=== PATIENT | female | born 1985 | race Hispanic/Latino ===

== ENCOUNTER 2023-11-17 12:34 | Inpatient (IN) | payer BC ==
[2023-11-17 13:39] LABS: #Monocytes 0.5 thou/uL (0.11-0.59); #Neutrophils 1.8 thou/uL (1.40-6.50); %Basophils 0.7 % (0.0-1.0); %Eosinophils 0.5 % (0.0-10.0); %Lymphocytes 46.3 % (21.0-51.0); Hemoglobin 5.8 g/dL (12.0-16.0); Mean Corpuscular HGB CONC 27.6 g/dL (32.0-36.0); Mean Platelet Volume 9.4 fL (7.4-10.4); Platelet Count 580 10x3/uL (130-400); RBC Distribution Width 25.9 % (11.5-14.5); Red Blood Cell (RBC) Count 3.23 mill/uL (4.20-5.40); White Blood Cell (WBC) Count 4.4 10x3/uL (4.8-10.8)
[2023-11-17 13:42] LABS: Critical Call w/ Read Back NUR.CJM1@1341
[2023-11-17 14:01] LABS: ALT (SGPT) 20 U/L (8-55); AST (SGOT) 20 U/L (5-34); Albumin 4.4 g/dL (3.5-5.0); Alkaline Phosphatase 69 U/L (40-110); Anion Gap 9 mmol/L (10-20); BUN (Urea Nitrogen) 8 mg/dL (7.0-18.7); Bilirubin, Total 0.5 mg/dL (0.2-1.2); Calc. Creatinine Clearance 0 mL/min (70-130); Calcium 8.9 mg/dL (7.8-10.44); Carbon Dioxide 23 mmol/L (22-29); Chloride 109 mmol/L (98-107); Estimated GFR 114; Globulin 3.2 g/dL (2.4-3.5); Glucose 89 mg/dL (70-105); Potassium 3.6 mmol/L (3.5-5.1); Protein, Total 7.6 g/dL (6.0-8.3); Sodium 137 mmol/L (136-145)
[2023-11-17 14:07] LABS: Anisocytosis MODERATE=16-30 cells HPF (0-5); CellaVision Operator ID LAB.MJL; Elliptocytes SLIGHT = 2-5 cells HPF (0-1); Hypochromia SLIGHT = 6-15 cells HPF (0-5); Microcytosis SLIGHT = 6-15 cells HPF (0-5); Ovalocytes SLIGHT = 2-5 cells HPF (0-1); Platelet Adequacy Comment Platelets Increased; Poikilocytosis MODERATE=16-30 cells HPF (0-5); Polychromasia MODERATE = 3-4 cells HPF (0-2); Schistocytes SLIGHT = 2-5 cells HPF (0-1); Spherocytes SLIGHT = 1-5 cells HPF (None Seen); Target Cells SLIGHT = 2-5 cells HPF (0-1)
[2023-11-17 14:45] LABS: BHCG - Serum Negative (NEGATIVE); INR-International Normal Ratio 1.1; Pregs Control Background? CLEAR/WHITE (CLR/WHITE); Pregs Control Bar Appear? YES (CONTROL BAR); Prothrombin Time 14.1 sec (12.0-14.7)
[2023-11-17 14:46] LABS: PTT 26.1 sec (22.9-36.1)
[2023-11-17 14:55] LABS: Troponin I Less than 0.010 ng/mL (< 0.028)
[2023-11-17 15:00] LABS: Magnesium 2.1 mg/dL (1.6-2.6)
[2023-11-17 15:01] LABS: Lipase 44 U/L (8-78)
[2023-11-17] MEDS ORDERED: Acetaminophen 325 MG TAB PO PRN (15:24)
[2023-11-17] MEDS ORDERED: Pantoprazole 40 MG VIAL IVP SCH (15:45)
[2023-11-17 16:06] LABS: Iron 11 ug/dL (50-170); Iron Binding Capacity, Total 379 mcg/dL (265-497)
[2023-11-17 16:23] LABS: Ferritin 3.34 ng/mL (10-291); Thyroid Stimulating Hormone 1.3683 uIU/mL (0.35-4.94)
[2023-11-17 17:19] VITALS: BMI 32.6
[2023-11-17] MEDS ORDERED: Pantoprazole 40 MG VIAL ONE (17:20)
[2023-11-17] MEDS ORDERED: GoLYTELY 4,000 ml Bottle PO SCH (19:45)
[2023-11-18 04:47] LABS: #Basophils 0.1 thou/uL (0.0-0.2); #Monocytes 0.6 thou/uL (0.11-0.59); #Neutrophils 1.7 thou/uL (1.40-6.50); %Basophils 0.9 % (0.0-1.0); %Eosinophils 0.6 % (0.0-10.0); %Lymphocytes 55.6 % (21.0-51.0); %Monocytes 11.7 % (0.0-10.0); Hematocrit 23.8 % (36.0-47.0); Mean Corpuscular HGB CONC 29.4 g/dL (32.0-36.0); Mean Corpuscular Hemoglobin 19.6 pg (27.0-31.0); Mean Corpuscular Volume 66.5 fl (78.0-98.0); Mean Platelet Volume 9.6 fL (7.4-10.4); Platelet Count 487 10x3/uL (130-400); RBC Distribution Width 26.2 % (11.5-14.5); Red Blood Cell (RBC) Count 3.58 mill/uL (4.20-5.40); White Blood Cell (WBC) Count 5.4 10x3/uL (4.8-10.8)
[2023-11-18 05:18] LABS: Anion Gap 9 mmol/L (10-20); BUN (Urea Nitrogen) 6 mg/dL (7.0-18.7); Calc. Creatinine Clearance 155 mL/min (70-130); Calcium 8.1 mg/dL (7.8-10.44); Carbon Dioxide 23 mmol/L (22-29); Chloride 110 mmol/L (98-107); Estimated GFR 116; Glucose 96 mg/dL (70-105); Potassium 3.8 mmol/L (3.5-5.1); Sodium 138 mmol/L (136-145)
[2023-11-18] MEDS ORDERED: PROPOFOL 60 ML ONE (08:01)
[2023-11-18] MEDS ORDERED: Lidocaine 1% PF 5 ML VIAL ONE (08:13)
[2023-11-18] MEDS ORDERED: PHENYLEPHRINE-NS 100 MCG/ML 10 ML SYRINGE ONE (08:21)
[2023-11-18] MEDS ORDERED: Preparation H Ointment 57 gram tube TOP PRN (09:39)
[2023-11-18] MEDS ORDERED: Preparation H Ointment 28 GM TUBE TOP PRN (12:39)
[2023-11-18] MEDS ORDERED: Acetaminophen 500 MG TAB PO SCH (14:00)
[2023-11-18 15:33] LABS: #Monocytes 0.5 thou/uL (0.11-0.59); #Neutrophils 1.6 thou/uL (1.40-6.50); %Basophils 0.7 % (0.0-1.0); %Eosinophils 0.7 % (0.0-10.0); %Lymphocytes 49.4 % (21.0-51.0); %Monocytes 12.6 % (0.0-10.0); %Neutrophils 36.4 % (42.0-75.0); Hematocrit 23.6 % (36.0-47.0); Mean Corpuscular HGB CONC 29.7 g/dL (32.0-36.0); Mean Corpuscular Hemoglobin 19.9 pg (27.0-31.0); Mean Corpuscular Volume 67.2 fl (78.0-98.0); Platelet Count 448 10x3/uL (130-400); Red Blood Cell (RBC) Count 3.51 mill/uL (4.20-5.40); White Blood Cell (WBC) Count 4.3 10x3/uL (4.8-10.8)
[2023-11-18 16:00] LABS: Anisocytosis MODERATE=16-30 cells HPF (0-5); CellaVision Operator ID LAB.MJL; Elliptocytes SLIGHT = 2-5 cells HPF (0-1); Hypochromia SLIGHT = 6-15 cells HPF (0-5); Microcytosis SLIGHT = 6-15 cells HPF (0-5); Ovalocytes SLIGHT = 2-5 cells HPF (0-1); Platelet Adequacy Comment Platelets Increased; Poikilocytosis MODERATE=16-30 cells HPF (0-5); Polychromasia MODERATE = 3-4 cells HPF (0-2); Target Cells SLIGHT = 2-5 cells HPF (0-1); Tear Drops SLIGHT = 2-5 cells HPF (0-1)
[2023-11-18] MEDS: Pantoprazole 40 MG VIAL IVP SCH (18:44)
[2023-11-18] MEDS: Levothyroxine 175 MCG TAB PO SCH (18:44)
[2023-11-18] MEDS: Metamucil PACK PO SCH (20:37)
[2023-11-19] MEDS: Levothyroxine 175 MCG TAB PO SCH (05:03)
[2023-11-19 06:20] LABS: #Eosinphils 0.1 thou/uL (0.0-0.7); #Monocytes 0.5 thou/uL (0.11-0.59); #Neutrophils 1.7 thou/uL (1.40-6.50); %Basophils 0.8 % (0.0-1.0); %Eosinophils 1.7 % (0.0-10.0); %Lymphocytes 50.7 % (21.0-51.0); %Monocytes 10.7 % (0.0-10.0); %Neutrophils 35.7 % (42.0-75.0); Hematocrit 24.4 % (36.0-47.0); Hemoglobin 7.1 g/dL (12.0-16.0); Mean Corpuscular HGB CONC 29.1 g/dL (32.0-36.0); Mean Corpuscular Hemoglobin 19.8 pg (27.0-31.0); Mean Platelet Volume 9.4 fL (7.4-10.4); Platelet Count 467 10x3/uL (130-400); RBC Distribution Width 26.3 % (11.5-14.5); Red Blood Cell (RBC) Count 3.59 mill/uL (4.20-5.40); White Blood Cell (WBC) Count 4.8 10x3/uL (4.8-10.8)
[2023-11-19 06:47] LABS: Anion Gap 11 mmol/L (10-20); BUN (Urea Nitrogen) 8 mg/dL (7.0-18.7); Calc. Creatinine Clearance 141 mL/min (70-130); Calcium 8.3 mg/dL (7.8-10.44); Carbon Dioxide 24 mmol/L (22-29); Chloride 108 mmol/L (98-107); Estimated GFR 114; Glucose 98 mg/dL (70-105); Potassium 4.1 mmol/L (3.5-5.1); Sodium 139 mmol/L (136-145)
[2023-11-19] MEDS ORDERED: Ferrous Gluconate 324 MG TAB PO SCH (08:00)
[2023-11-19] MEDS ORDERED: Metamucil PACK PO SCH (09:00)
[2023-11-19] MEDS: Pantoprazole 40 MG VIAL IVP SCH (09:31)
[2023-11-19] MEDS: Metamucil PACK PO SCH ×2 (09:31→22:08)
[2023-11-19] MEDS ORDERED: Polyethylene Glycol 3350 17 GM Packet PO SCH (13:30)
[2023-11-19] MEDS: Acetaminophen 325 MG TAB PO PRN (16:27)
[2023-11-19] MEDS ORDERED: Iron, Sodium Ferric Gluconate 250 MG in Sodium Chloride 0.9% 250 ML 250 ML IVPB SCH (21:00)
[2023-11-20] MEDS: Acetaminophen 325 MG TAB PO PRN ×2 (00:25→19:37)
[2023-11-20 04:56] LABS: #Eosinphils 0.1 thou/uL (0.0-0.7); #Monocytes 0.4 thou/uL (0.11-0.59); #Neutrophils 4.4 thou/uL (1.40-6.50); %Basophils 0.6 % (0.0-1.0); %Eosinophils 0.8 % (0.0-10.0); %Lymphocytes 29.7 % (21.0-51.0); %Monocytes 5.8 % (0.0-10.0); %Neutrophils 62.7 % (42.0-75.0); Hematocrit 25.8 % (36.0-47.0); Hemoglobin 7.5 g/dL (12.0-16.0); Mean Corpuscular HGB CONC 29.1 g/dL (32.0-36.0); Mean Corpuscular Hemoglobin 19.7 pg (27.0-31.0); Mean Corpuscular Volume 67.9 fl (78.0-98.0); Mean Platelet Volume 9.5 fL (7.4-10.4); Platelet Count 468 10x3/uL (130-400); RBC Distribution Width 26.5 % (11.5-14.5); White Blood Cell (WBC) Count 7.1 10x3/uL (4.8-10.8)
[2023-11-20 05:27] LABS: Anion Gap 10 mmol/L (10-20); BUN (Urea Nitrogen) 10 mg/dL (7.0-18.7); Calc. Creatinine Clearance 135 mL/min (70-130); Calcium 8.6 mg/dL (7.8-10.44); Carbon Dioxide 25 mmol/L (22-29); Chloride 106 mmol/L (98-107); Estimated GFR 110; Glucose 106 mg/dL (70-105); Potassium 3.8 mmol/L (3.5-5.1); Sodium 137 mmol/L (136-145)
[2023-11-20] MEDS: Levothyroxine 175 MCG TAB PO SCH (05:44)
[2023-11-20 05:57] LABS: Anisocytosis SLIGHT = 6-15 cells HPF (0-5); CellaVision Operator ID lab.abc; Hypochromia SLIGHT = 6-15 cells HPF (0-5); Microcytosis SLIGHT = 6-15 cells HPF (0-5); Platelet Adequacy Comment Platelets Normal; Polychromasia SLIGHT = 2-3 cells HPF (0-2)
[2023-11-20] MEDS ORDERED: Polyethylene Glycol 3350 17 GM Packet PO SCH (09:00)
[2023-11-20] MEDS: Metamucil PACK PO SCH (09:27)
[2023-11-20] MEDS: Pantoprazole 40 MG VIAL IVP SCH (09:27)
[2023-11-20] MEDS ORDERED: Iron, Sodium Ferric Gluconate 250 MG in Sodium Chloride 0.9% 250 ML 250 ML IVPB SCH (17:00)
[2023-11-20 19:29] VITALS: BP 118/77; TEMP 98.1
[2023-11-22] MEDS ORDERED: Ferrous Gluconate 324 MG TAB PO SCH (09:00)
== END 2023-11-20 20:16 | disposition home or self-care (01) | DRG 812 ==
LOC: ERS 12:34 → INTOOBSV 14:23 → ERHOLD 14:23 → T4-A 18:39 → OBSVTOIN 11-18 13:54
PROVIDERS: ADMIT Family Medicine; ATTEND Internal Medicine
PROC: 30233N1 Transfusion of Nonautologous Red Blood Cells into Peripheral Vein, Percutaneous Approach (ICD-10-PCS; principal; 2023-11-17)
PROC: 0DBN8ZZ Excision of Sigmoid Colon, Via Natural or Artificial Opening Endoscopic (ICD-10-PCS; 2023-11-18)
DX: D62 Acute posthemorrhagic anemia (principal); K64.8 Other hemorrhoids; K64.4 Residual hemorrhoidal skin tags; E03.9 Hypothyroidism, unspecified; D50.9 Iron deficiency anemia, unspecified; K57.30 Diverticulosis of large intestine without perforation or abscess without bleeding; K63.5 Polyp of colon; D64.9 Anemia, unspecified
CPT/HCPCS: 36415; 36416; 36430; 80048; 80053; 82274; 82728; 83540; 83550; 83690; 83735; 84443; 84484; 84703; 85018; 85025; 85610; 85730; 86850; 86900; 86901; 88305; 93005; 96374; C9113; G0378; J2704; J2916; J7050; P9016

== ENCOUNTER 2023-12-11 11:15 | Outpatient (CLI) | payer BC ==
[2023-12-11 12:58] LABS: #Eosinphils 0.1 10x3/uL (0.0-0.5); #Monocytes 0.7 10x3/uL (0.0-1.1); %Basophils 0.7 % (0.0-2.0); %Eosinophils 2.1 % (0.0-6.0); %Lymphocytes 31.9 % (18.0-47.0); %Monocytes 11.6 % (0.0-10.0); %Neutrophils 53.3 % (40.0-75.0); Hematocrit 39.6 % (34.9-44.5); Hemoglobin 11.9 g/dL (12.0-15.5); Mean Corpuscular HGB CONC 30.1 g/dL (32.0-36.0); Mean Corpuscular Hemoglobin 22.8 pg (27.0-33.0); Mean Platelet Volume 9.4 fl (7.4-10.4); Platelet Count 702 10x3/uL (150-450); RBC Distribution Width 29.1 % (11.5-14.5); Red Blood Cell (RBC) Count 5.21 10x6/uL (3.90-5.03); White Blood Cell (WBC) Count 5.7 10x3/uL (3.5-10.5)
[2023-12-11 13:04] LABS: Anion Gap 12 mmol/L (10-20); BUN (Urea Nitrogen) 14 mg/dL (7.0-18.7); Calc. Creatinine Clearance 0 mL/min (70-130); Calcium 9.6 mg/dL (7.8-10.44); Carbon Dioxide 24 mmol/L (22-29); Chloride 106 mmol/L (98-107); Estimated GFR 115; Glucose 86 mg/dL (70-105); Potassium 4.5 mmol/L (3.5-5.1); Sodium 137 mmol/L (136-145)
== END 2023-12-11 11:16 | disposition home or self-care (01) ==
LOC: LABBT 11:15
PROVIDERS: ATTEND Surgery
DX: Z01.812 Encounter for preprocedural laboratory examination (principal); K64.9 Unspecified hemorrhoids; K62.0 Anal polyp
CPT/HCPCS: 80048; 85025

== ENCOUNTER 2023-12-18 05:39 | Day surgery (SDC) | payer BC ==
[2023-12-11 12:08] VITALS: BMI 32.1
[2023-12-18] MEDS ORDERED: Ondansetron PF 4 MG/2 ML Vial ONE (06:10)
[2023-12-18] MEDS ORDERED: Lidocaine 1% PF 5 ML VIAL ONE (06:10)
[2023-12-18] MEDS ORDERED: Midazolam HCl 2 mg/2 ml Vial ONE ×2 (06:10→07:01)
[2023-12-18] MEDS ORDERED: fentaNYL PF 100 MCG/2 ML SYRINGE ONE ×2 (06:10→08:19)
[2023-12-18] MEDS ORDERED: Dexamethasone 4 mg/ml Vial ONE (06:10)
[2023-12-18] MEDS ORDERED: PROPOFOL 20 ML ONE (06:11)
[2023-12-18] MEDS ORDERED: Sodium Chloride 0.9% 100 ML ONE (06:13)
[2023-12-18] MEDS ORDERED: cefOXitin 2 GM VIAL ONE (06:13)
[2023-12-18] MEDS ORDERED: Lidocaine 1% MPF 2 ML VIAL ONE (06:13)
[2023-12-18] MEDS ORDERED: HYDROmorphone 0.5 MG/0.5 ML SYRINGE ONE (06:17)
[2023-12-18] MEDS ORDERED: Lidocaine 4% Topical Sol 50 ML BOT ONE (06:17)
[2023-12-18] MEDS ORDERED: Rocuronium Bromide 10 MG/ML (10ML VIAL) ONE (06:19)
[2023-12-18] MEDS ORDERED: SUGAMMADEX SODIUM 200 MG/2 ML VIAL ONE (06:19)
[2023-12-18] MEDS ORDERED: Acetaminophen 500 MG TAB ONE (06:42)
[2023-12-18] MEDS ORDERED: EPINEPHrine 1 MG/ML VIAL ONE (07:32)
[2023-12-18] MEDS ORDERED: Bupivacaine 0.25% HCL 30 ML VIAL ONE (07:32)
[2023-12-18] MEDS ORDERED: Lidocaine-Prilocaine 2.5% Cream 5 GM TUBE ONE (07:54)
[2023-12-18] MEDS ORDERED: HYDROcodone/Acetaminophen 5/325 mg Tablet ONE (09:51)
== END 2023-12-18 10:25 | disposition home or self-care (01) ==
LOC: SDC 05:39
PROVIDERS: ATTEND Surgery
PROC: 0YU54JZ Supplement Right Inguinal Region with Synthetic Substitute, Percutaneous Endoscopic Approach (ICD-10-PCS; principal; 2023-12-18)
PROC: 06BY0ZC Excision of Hemorrhoidal Plexus, Open Approach (ICD-10-PCS; principal; 2023-12-18)
DX: K64.8 Other hemorrhoids (principal); K62.9 Disease of anus and rectum, unspecified; K40.90 Unilateral inguinal hernia, without obstruction or gangrene, not specified as recurrent; E03.9 Hypothyroidism, unspecified; Z79.899 Other long term (current) drug therapy; Z98.890 Other specified postprocedural states
CPT/HCPCS: 88304; J0171; J0665; J0694; J1100; J1170; J2250; J2405; J2704; J3490